=== PATIENT | male | born 1985 | race Caucasian/White ===

== ENCOUNTER 2018-05-21 08:11 | Emergency (ER) | payer SELFPAY ==
[~2018-05-21] VITALS: Ht 177.8 cm; Wt 77.1 kg
[~2018-05-21 08:11] MED LIST: AMOXIL125 MG/5 M PO; ATIVAN0.5 MG PO; ATIVAN1 MG PO; CIPROFLOXACIN500 MG PO; CLARITIN10 MG PO; CLINDAMYCIN HC300 MG PO; EES400 MG PO; FLOMAX0.4 MG PO; HYDROCODONE BIT1 T11 PO; IBU-8800 MG PO; IBUPROFEN600 MG PO; MOTRIN800 MG PO; PEPCID20 MG PO; PREDNICOT20 MG PO; Phenergan25 MG PO; REGLAN10 MG PO; ROBAXIN500 M1 PO; RONDEC 1 MG/ML-30 ML PO; TRAMADOL HCL50 MG PO; ZITHROMAX Z PA250 MG PO
[2018-05-21] MEDS ORDERED: KEFLEX500 M1 PO (09:25)
== END 2018-05-21 09:53 | disposition home or self-care (01) ==
LOC: ED 08:11
DX: S80.12XA Contusion of left lower leg, initial encounter (principal); F17.200 Nicotine dependence, unspecified, uncomplicated; Z88.0 Allergy status to penicillin; Z88.8 Allergy status to other drugs, medicaments and biological substances; Z79.899 Other long term (current) drug therapy; W20.8XXA Other cause of strike by thrown, projected or falling object, initial encounter; Y93.89 Activity, other specified; Y92.69 Other specified industrial and construction area as the place of occurrence of the external cause; Y99.8 Other external cause status